=== PATIENT | female | born 1990 | race Caucasian/White ===

== ENCOUNTER 2022-03-15 19:58 | Emergency (ER) | payer OTHER ==
[~2022-03-15] VITALS: Ht 160 cm; Wt 86.4 kg
[2022-03-15 20:00] VITALS: TEMP 98
[2022-03-15 21:05] VITALS: BP 112/70; PULSE 76
== END 2022-03-15 21:05 | disposition home or self-care (01) ==
LOC: COL.ER 19:58
DX: S61.310A Laceration without foreign body of right index finger with damage to nail, initial encounter (principal); Z28.310 Unvaccinated for COVID-19; W26.8XXA Contact with other sharp object(s), not elsewhere classified, initial encounter